=== PATIENT | male | born 1990 | race American Indian/Alaskan Native ===

== ENCOUNTER 2020-10-06 21:33 | Emergency (ER) | payer SELFPAY ==
[2020-10-07 03:30] VITALS: BP 119/79
== END 2020-10-07 04:40 | disposition left against medical advice (07) ==
LOC: ED 21:33
DX: R11.10 Vomiting, unspecified (principal); R19.7 Diarrhea, unspecified; Z53.21 Procedure and treatment not carried out due to patient leaving prior to being seen by health care provider